=== PATIENT | female | born 1975 | race Caucasian/White ===

== ENCOUNTER → 2020-12-09 10:57 | Outpatient (BNVA) | payer SELFPAY | PROVIDERS: Visit Provider Physician Assistant Medical | DX: S29.012A Strain of muscle and tendon of back wall of thorax, initial encounter (principal); S16.1XXA Strain of muscle, fascia and tendon at neck level, initial encounter; S50.01XA Contusion of right elbow, initial encounter; S49.91XA Unspecified injury of right shoulder and upper arm, initial encounter; X50.1XXA Overexertion from prolonged static or awkward postures, initial encounter | CPT/HCPCS: 72050; 73030; 99203 ==

== ENCOUNTER → 2020-12-14 14:10 | Outpatient (BNVA) | payer OTHER, SELFPAY | PROVIDERS: Visit Provider Physician Assistant Medical | DX: S29.012A Strain of muscle and tendon of back wall of thorax, initial encounter (principal); S16.1XXA Strain of muscle, fascia and tendon at neck level, initial encounter; S50.01XA Contusion of right elbow, initial encounter; S49.91XA Unspecified injury of right shoulder and upper arm, initial encounter; X58.XXXA Exposure to other specified factors, initial encounter | CPT/HCPCS: 99213 ==

== ENCOUNTER → 2020-12-21 13:19 | Outpatient (BNVA) | payer OTHER, SELFPAY | PROVIDERS: Visit Provider Physician Assistant Medical | DX: S29.012A Strain of muscle and tendon of back wall of thorax, initial encounter (principal); S49.91XA Unspecified injury of right shoulder and upper arm, initial encounter; X50.3XXA Overexertion from repetitive movements, initial encounter | CPT/HCPCS: 99213 ==

== ENCOUNTER → 2021-01-05 15:25 | Outpatient (BNVA) | payer OTHER, SELFPAY | PROVIDERS: Visit Provider Physician Assistant Medical | DX: M24.811 Other specific joint derangements of right shoulder, not elsewhere classified (principal) | CPT/HCPCS: 99213 ==

== ENCOUNTER → 2021-01-13 12:58 | Outpatient (BNVA) | payer OTHER, SELFPAY | PROVIDERS: PCP Internal Medicine; Visit Provider Physician Assistant Medical | DX: S46.911D Strain of unspecified muscle, fascia and tendon at shoulder and upper arm level, right arm, subsequent encounter (principal); S16.1XXD Strain of muscle, fascia and tendon at neck level, subsequent encounter; S29.012D Strain of muscle and tendon of back wall of thorax, subsequent encounter; X58.XXXD Exposure to other specified factors, subsequent encounter | CPT/HCPCS: 99213 ==

== ENCOUNTER 2021-01-17 16:20 | Outpatient (REF) | payer OTHER, SELFPAY ==
--- NOTE | ~2021-01-17 | MR_ITS ---
EXAMINATION: MR SHOULDER WITHOUT CONTRAST, RIGHT CLINICAL INFORMATION: Right shoulder pain. Lifting and pushing injury, weakness, decreased range of motion. Patient reports fall 12/08/2020. COMPARISON: None TECHNIQUE: MRI of the shoulder without contrast was performed on a high-field scanner. FINDINGS: ROTATOR CUFF: There is mild distal supraspinatus, infraspinatus, and subscapularis tendinosis. There is no discrete tear. The teres minor tendon is intact. There is trace edema/fluid in the subacromial-subdeltoid bursa. No muscle atrophy or fatty infiltration. BICEPS: Normal. CORACOACROMIAL ARCH: The undersurface of the acromion is flat with no subacromial spur. The acromioclavicular joint is normal. LABRUM/CAPSULE: The superior and anterior labrum appear intact. There is mild irregularity, fraying, and/or small tear of the free edge of the posterior labrum. GLENOHUMERAL JOINT/MARROW: Normal. MR/MR shoulder RT wo con IMPRESSION: 1. Mild rotator cuff tendinosis. No evidence of tear. 2. Minor subacromial-subdeltoid bursitis. 3. Mild irregularity, fraying, and/or small tear of the free edge of the posterior labrum.
== END 2021-01-17 16:21 | disposition home or self-care (01) ==
LOC: HO.MRI 16:20
PROVIDERS: PCP Internal Medicine; Visit Provider Internal Medicine
DX: M25.511 Pain in right shoulder (principal); R53.1 Weakness
CPT/HCPCS: 73221

== ENCOUNTER → 2021-01-20 12:17 | Outpatient (BNVA) | payer OTHER, SELFPAY | PROVIDERS: PCP Internal Medicine; Visit Provider Physician Assistant Medical | DX: M75.51 Bursitis of right shoulder (principal); S16.1XXD Strain of muscle, fascia and tendon at neck level, subsequent encounter; S29.012D Strain of muscle and tendon of back wall of thorax, subsequent encounter; X58.XXXD Exposure to other specified factors, subsequent encounter | CPT/HCPCS: 99213 ==

== ENCOUNTER → 2021-02-01 13:42 | Outpatient (BNVA) | payer OTHER, SELFPAY | PROVIDERS: PCP Internal Medicine; Visit Provider Physician Assistant Medical | DX: M70.811 Other soft tissue disorders related to use, overuse and pressure, right shoulder (principal) | CPT/HCPCS: 99213 ==

== ENCOUNTER → 2021-02-22 14:48 | Outpatient (BNVA) | payer OTHER, SELFPAY | PROVIDERS: PCP Internal Medicine; Visit Provider Physician Assistant Medical | DX: M75.101 Unspecified rotator cuff tear or rupture of right shoulder, not specified as traumatic (principal) | CPT/HCPCS: 99213 ==

== ENCOUNTER → 2021-03-10 13:51 | Outpatient (BNVA) | payer OTHER, SELFPAY | PROVIDERS: PCP Internal Medicine; Visit Provider Physician Assistant Medical | DX: M75.51 Bursitis of right shoulder (principal) | CPT/HCPCS: 99213 ==

== ENCOUNTER → 2021-03-24 10:11 | Outpatient (BNVA) | payer OTHER, SELFPAY | PROVIDERS: PCP Internal Medicine; Visit Provider Physician Assistant Medical | DX: M75.01 Adhesive capsulitis of right shoulder (principal) | CPT/HCPCS: 99213 ==

== ENCOUNTER 2021-04-13 15:00 | Outpatient (RCR) | payer OTHER, SELFPAY ==
--- NOTE | 2021-02-08 15:21 | MHC.PT.EP ---
[facility] [place] Office [place] Office [place] Office [address] Chuyita Emerson [address] [phone] F: [phone] F: [phone] F: [phone] F: [phone] Physical Therapy Plan of Care Date of Evaluation: 02/08/21 Date of Surgery: n/a Diagnosis: RTC tendonitis, bursitis, cervical thoracic strain s/p fall @ work (slip and fall on water which was left on the floor). Assessment: This is a 45 y/o female referred to skilled PT for right shoulder bursitis, RTC tendonitis, and cervical/thoracic strain following a slip and fall on water at work. 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 Assessment reveals mild decreased cervical and shoulder AROM, mild decreased strength, mild impaired scapulohumeral joint rhythm, tenderness to palpation along the right medial scapular border and right upper trapezius, and strong/painful resisted tests into shoulder flexion. Related functional limitations include: difficulty lifting, reaching, carrying, and sleeping. Pt will benefit from skilled PT services 2x/week for 5 weeks in order to reduce impairments and improve limitations. Frequency and Duration: The patient will be seen 2x/week for 5 weeks Short Term Goals: -In 2 weeks, Pt to improve PROM right shoulder ER/IR by at least 8 degrees. -In 3 weeks, Pt to demonstrate the ability to lift a 2# object onto a shelf above head level w/ <2/10 pain. 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 -In 5 weeks, Pt to restore AROM of the right shoulder to WNL in all directions. Treatment Plan: Modalities to reduce pain, spasms and effusion. Manual therapy to restore motion and function. Therapeutic exercise to improve strength and flexibility. Neuromuscular re-education for posture and balance. Therapeutic activities to return to functional activities of daily living. Electronically signed by: Rowan Barrett PT, DPT Please sign and return to therapist. Thank you for your referral.
--- NOTE | 2021-02-08 15:22 | MHC.PT.EP ---
[facility] [place] Office [place] Office [place] Office [address] Chuyita Emerson [address] [phone] F: [phone] F: [phone] F: [phone] F: [phone] Physical Therapy Plan of Care Date of Evaluation: 02/08/21 Date of Surgery: n/a Diagnosis: RTC tendonitis, bursitis, cervical thoracic strain s/p fall @ work (slip and fall on water which was left on the floor). Assessment: This is a 45 y/o female referred to skilled PT for right shoulder bursitis, RTC tendonitis, and cervical/thoracic strain following a slip and fall on water at work. 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 Assessment reveals mild decreased cervical and shoulder AROM, mild decreased strength, mild impaired scapulohumeral joint rhythm, tenderness to palpation along the right medial scapular border and right upper trapezius, and strong/painful resisted tests into shoulder flexion. Related functional limitations include: difficulty lifting, reaching, carrying, and sleeping. Pt will benefit from skilled PT services 2x/week for 5 weeks in order to reduce impairments and improve limitations. Frequency and Duration: The patient will be seen 2x/week for 5 weeks Short Term Goals: -In 2 weeks, Pt to improve PROM right shoulder ER/IR by at least 8 degrees. -In 3 weeks, Pt to demonstrate the ability to lift a 2# object onto a shelf above head level w/ <2/10 pain. [employer] Goals: -In 5 weeks, Pt to demonstrate I w/ HEP. -In 5 weeks, Pt to restore AROM of the right shoulder to WNL in all directions. Treatment Plan: Modalities to reduce pain, spasms and effusion. Manual therapy to restore motion and function. Therapeutic exercise to improve strength and flexibility. Neuromuscular re-education for posture and balance. Therapeutic activities to return to functional activities of daily living. Electronically signed by: Rowan Barrett PT, DPT Please sign and return to therapist. Thank you for your referral.
--- NOTE | 2021-04-26 17:17 | MHC.PT.DC ---
[facility] [place] Office [place] Office [place] Office [address] Chuyita Emerson [address] [phone] F: [phone] F: [phone] F: [phone] F: [phone] Physical Therapy Discharge Report Diagnosis: RTC tendonitis, bursitis, cervical thoracic strain s/p fall @ work (slip and fall on water which was left on the floor). Date of Surgery: n/a Date of Evaluation: 02/08/21 Date of Discharge: 04/26/21 Treatments to Date: 9 Cancellations to Date: 7 No Shows to Date: 2 Discharge Status: Improved Function Independent with HEP Discharge Summary: The patient overall has improved range of motion, strength, and reduced pain severity. She was able to progress to a dynamic strengthening program. She is independent with her home exercise program at this time. 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 She is discharged from this physical therapy plan of care at this time. Electronically signed by: Lary Raines PT, DPT Please sign and return to therapist. Thank you for your referral.
== END 2021-04-26 17:17 | disposition other institution (70) ==
LOC: HO.PT 15:00
PROVIDERS: PCP Internal Medicine; Visit Provider Physician Assistant Medical
DX: S16.1XXD Strain of muscle, fascia and tendon at neck level, subsequent encounter (principal); S29.012D Strain of muscle and tendon of back wall of thorax, subsequent encounter; G56.01 Carpal tunnel syndrome, right upper limb; M71.9 Bursopathy, unspecified
CPT/HCPCS: 97110; 97140; 97161; 97530

== ENCOUNTER → 2021-04-19 11:10 | Outpatient (BNVA) | payer OTHER, SELFPAY | PROVIDERS: PCP Internal Medicine; Visit Provider Physician Assistant Medical | DX: M75.101 Unspecified rotator cuff tear or rupture of right shoulder, not specified as traumatic (principal) | CPT/HCPCS: 99213 ==

== ENCOUNTER → 2022-03-12 13:52 | Outpatient (BNVA) | payer OTHER, SELFPAY | PROVIDERS: PCP Internal Medicine; Visit Provider Physician Assistant | DX: E66.9 Obesity, unspecified (principal); E11.9 Type 2 diabetes mellitus without complications; I10 Essential (primary) hypertension; J45.909 Unspecified asthma, uncomplicated; Z79.4 Long term (current) use of insulin; Z98.84 Bariatric surgery status; Z68.39 Body mass index [BMI] 39.0-39.9, adult | CPT/HCPCS: 99202 ==

== ENCOUNTER 2022-03-31 08:22 | Outpatient (REF) | payer OTHER, SELFPAY ==
[2022-03-31 08:42] LABS: MANUAL DIFF FLAG NO
[2022-03-31 09:10] LABS: Basophils Percent Auto 0.6 % (0-2); Eosinophils Absolute Auto 0.3 X10*3/uL (0.0-0.4); Eosinophils Percent Auto 4.2 % (0-4); Hematocrit 37.4 % (37.0-47.0); Hemoglobin 12.6 g/dl (12.0-16.0); Imm Gran Abs Auto 0.02 X10*3/uL (0.00-0.03); Imm Gran Pct Auto 0.3 % (0.0-0.4); Lymphocytes Absolute Auto 2.2 X10*3/uL (1.2-4.9); Lymphocytes Percent Auto 31.2 % (20-40); Mean Corpuscular HGB Conc 33.7 g/dl (31.0-35.0); Mean Platelet Volume 9.8 fL (9.4-12.3); Monocytes Absolute Auto 0.3 X10*3/uL (0.1-1.2); Monocytes Percent Auto 4.7 % (2-11); Neutrophils Absolute Auto 4.1 x10*3/uL (2.0-8.3); Platelet Count 261 X10*3/uL (160-400); Red Blood Count 4.35 X10*6/uL (4.20-5.50); Red Cell Distribution Width 12.4 % (11.0-16.0)
[2022-03-31 09:28] LABS: Estimated Average Glucose 171 mg/dL; Hemoglobin A1c % 7.6 %
[2022-03-31 09:34] LABS: Alanine Aminotransferase 15 U/L (0-31); Albumin Level 3.7 g/dL (3.5-5.0); Alkaline Phosphatase 92 U/L (39-117); Anion Gap 14 (12-20); Aspartate Amino Transferase 15 U/L (5-31); Bilirubin Total 0.5 mg/dL (0.0-1.0); Blood Urea Nitrogen 21 mg/dL (9-16); C Reactive Protein 1.51 mg/dL (< or = 0.50); Calcium 9.1 mg/dL (8.4-10.2); Carbon Dioxide 29 mmol/L (22-29); Chloride 107 mmol/L (96-108); Cholesterol 142 mg/dL; Estimated Glomerular Filt Rate > 60; Glucose Random 224 mg/dL (60-115); HDL Cholesterol 47 mg/dL; Iron 37 mcg/dL (30-160); LDL Cholesterol Calculated 86 mg/dl; Percent Iron Saturation 15 % (15-50); Potassium 4.5 mmol/L (3.3-5.1); Sodium 145 mmol/L (135-145); Total Iron Binding Capacity 252 mcg/dL (228-428); Triglycerides 48 mg/dL; Unsaturated Iron Binding 215 ug/dL
[2022-03-31 10:08] LABS: Ferritin 43 ng/mL (10-250); TSH reflex Free T4 1.14 uIU/mL (0.32-4.0); Vitamin D 25-OH Total 37.3 ng/mL (>30)
[2022-03-31 10:38] LABS: Insulin 50 uU/mL (2-29)
[2022-04-02 10:05] LABS: Folate 14.5 ng/mL (> or = 4.0); Vitamin B12 > 2000 pg/mL (200-900)
[2022-04-02 12:47] LABS: Calcium (PTHI) 8.9 mg/dL (8.6-10.2); PTHI 45 pg/mL (16-77)
[2022-04-04 02:01] LABS: Zinc 84 mcg/dL (60-130)
[2022-04-04 20:02] LABS: Vitamin A 22 mcg/dL (38-98)
[2022-04-06 18:16] LABS: Vitamin B1 6 nmol/L (8-30)
== END 2022-03-31 08:23 | disposition home or self-care (01) ==
LOC: HO.LAB 08:22
PROVIDERS: PCP Internal Medicine; Visit Provider Physician Assistant
DX: Z98.84 Bariatric surgery status (principal)
CPT/HCPCS: 36415; 80053; 80061; 82306; 82607; 82728; 82746; 83036; 83525; 83540; 83970; 84425; 84443; 84590; 84630; 85025; 86140

== ENCOUNTER → 2022-04-09 13:25 | Outpatient (BNVA) | payer OTHER, SELFPAY | PROVIDERS: PCP Internal Medicine; Referring Provider Internal Medicine; Visit Provider Physician Assistant | DX: E66.9 Obesity, unspecified (principal); Z68.38 Body mass index [BMI] 38.0-38.9, adult; Z98.84 Bariatric surgery status | CPT/HCPCS: 99212 ==